=== PATIENT | female | born 1965 | race Caucasian/White ===

== ENCOUNTER → 2018-05-11 | Outpatient (CLI) | payer BC ==
--- NOTE | 2018-05-12 10:34 | MM ---
Reason for exam: additional evaluation requested from prior study. Last mammogram was performed 2 years and 6 months ago. History: Patient had first child at age 33. Family history of breast cancer in mother at age 71. Taking hormonal contraceptives for 1 year. Physical Findings: Nurse did not find any significant physical abnormalities on exam. MG 3D Diag Mammo W/Cad FARHAT Bilateral CC and MLO view(s) were taken. Prior study comparison: November 11, 2015, bilateral MG 3d screening mammo w/cad. October 12, 2010, bilateral digital screening mammo w/CAD. There are scattered fibroglandular densities. No significant new findings when compared with previous films. These results were verbally communicated with the patient and result sheet given to the patient on 05/11/18. ASSESSMENT: Negative, BI-RAD 1 RECOMMENDATION: Routine screening mammogram of both breasts in 1 year.
== END ==
LOC: RADMAMWWP 13:36
PROVIDERS: ATTEND Family Medicine
DX: N64.4 Mastodynia (principal)
CPT/HCPCS: 77062; 77066

== ENCOUNTER → 2019-04-06 | Outpatient (CLI) | payer BC ==
--- NOTE | 2019-04-06 13:13 | US ---
EXAMINATION TYPE: US venous doppler duplex LE RT DATE OF EXAM: 04/06/2019 12:55 PM COMPARISON: NONE CLINICAL HISTORY: R22.41 R Lower leg. Right lower leg and foot pain with sciatica. SIDE PERFORMED: Right TECHNIQUE: The lower extremity deep venous system is examined utilizing real time linear array sonog priscila with graded compression, doppler sonography and color-flow sonography. VESSELS IMAGED: Common Femoral Vein Deep Femoral Vein Greater Saphenous Vein * Femoral Vein Popliteal Vein Small Saphenous Vein * Proximal Calf Veins (* superficial vessels) There is normal flow, compressibility, vascular waveforms. Right Leg: Negative for DVT Tech findings called to Melina at Dr Siu's Office at exam's end. IMPRESSION: No evident deep venous arthrosis at or above the right knee.
== END | disposition home or self-care (01) ==
LOC: RADUSWWP 12:29
PROVIDERS: ATTEND Family Medicine
DX: M79.604 Pain in right leg (principal); R60.0 Localized edema; M54.31 Sciatica, right side

== ENCOUNTER → 2021-09-02 | Outpatient (CLI) | payer BC ==
--- NOTE | 2021-09-02 07:55 | CT ---
EXAMINATION TYPE: CT brain wo con DATE OF EXAM: 09/02/2021 HISTORY: Lt sided tension GAFFNEY CT DLP: 945.5 mGycm. Automated Exposure Control for Dose Reduction was Utilized. TECHNIQUE: CT scan of the head is performed without contrast. COMPARISON: None. FINDINGS: There is no acute intracranial hemorrhage or midline shift identified. Ventricle and sulc al size within normal limits for patient's age. Pittman-white matter differentiation maintained. Slight ly low-lying cerebellar tonsils into foramen magnum sagittal image 20 through 24 for reference. No de finitive greater than 5 mm inferior displacement. The globes are intact and the visualized sinuses ar e clear. IMPRESSION: No acute intracranial hemorrhage or midline shift. Low-lying cerebellar tonsils, patient may benefit with MRI follow-up.
== END | disposition home or self-care (01) ==
LOC: RADCTMAIN 06:50
PROVIDERS: ATTEND Family Medicine
DX: G44.209 Tension-type headache, unspecified, not intractable (principal)
CPT/HCPCS: 70450

== ENCOUNTER → 2021-09-30 | Outpatient (CLI) | payer BC ==
--- NOTE | 2021-09-30 10:08 | MR ---
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 Headaches TECHNIQUE: Multiplanar, multisequence images of the brain and brainstem were acquired before and aft er administration of 9 mL IV Gadavist. Diffusion weighted imaging is performed. FINDINGS: No evidence for acute infarction, hemorrhage, mass, mass effect, midline shift, herniation, effacemen t of basal cisterns, or extra-axial fluid collection. The ventricles and sulci are age-appropriate. The left vertebral artery is dominant. Major intracranial flow voids are intact. T2/FLAIR weighted sequences show no white matter signal abnormality. Midline structures demonstrate normal morphology. There is 4.5 mm of cerebellar tonsillar ectopia on the right and 5.5 mm on the left. These measurements are indeterminate between benign tonsillar ectop ia and Andrew 1 malformation. Otherwise, the craniocervical junction is normal. Post contrast images demonstrate no evidence of pathologic enhancement. Dural venous sinuses are pat ent. Scattered trace mucosal thickening ethmoid air cells. Minimal fluid within the inferior left mastoid air cells. Globes are intact. Either a prominent lobule of tissue relating to the left parotid gland versus a left parotid mass jose luis suring 1.8 x 1.1 cm (postcontrast sagittal image 13. There appears to be an enlarged lymph node in th e left upper neck measuring 1.6 cm short axis, postcontrast sagittal image 29. IMPRESSION: 1. No intracranial abnormality or enhancing lesion is seen. No T2-weighted white matter signal change s. 2. 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 These measurements are indeterminate between benign cerebellar tonsillar ectopia and Chiari I malformation. The former is s omewhat favored as there is no overcrowding at the foramen magnum or darinel tonsillar beaking. Further clinical correlation recommended. 3. Trace chronic ethmoid sinus disease. Minimal trapped fluid inferior left mastoid air cells, probab ly incidental/transient. Correlate for any mastoid pain to exclude mastoiditis. 4. Either a prominent lobule of parotid gland tissue versus a left parotid gland mass measuring 1.8 x 1.1 cm. Given an enlarged 1.6 cm short axis lymph node in the left upper neck, recommend further con trast-enhanced CT soft tissue neck evaluation.
== END | disposition home or self-care (01) ==
LOC: RADMRIMAIN 06:57
PROVIDERS: ATTEND Nurse Practitioner Family
DX: Q04.8 Other specified congenital malformations of brain (principal); J32.2 Chronic ethmoidal sinusitis; R59.9 Enlarged lymph nodes, unspecified
CPT/HCPCS: 70553; A9585

== ENCOUNTER 2021-12-01 13:15 | Day surgery (SDC) | payer BC ==
[2021-12-01] MEDS ORDERED: ALPRAZolam 0.5 MG TAB PO STA (13:43)
[2021-12-01 15:18] VITALS: BP 145/74; PULSE 97; RESP 18
--- NOTE | 2021-12-01 15:21 | US ---
ULTRASOUND GUIDED FNA LEFT NECK BIOPSY: CLINICAL HISTORY: Left parotid or neck mass FINDINGS: Preliminary imaging demonstrated no evidence of solid or cystic mass. IMPRESSION: 1. No definite mass seen by ultrasound. Recommend CT soft tissue neck with contrast for further evalu ation. MRI finding was only partially seen within the [id number]. Therefore this CT is recommended for further evaluation as clinically warranted.
== END 2021-12-01 14:45 | disposition home or self-care (01) ==
LOC: RADPROMAIN 13:15
PROVIDERS: ATTEND Otolaryngology
DX: K11.8 Other diseases of salivary glands (principal); R90.89 Other abnormal findings on diagnostic imaging of central nervous system
CPT/HCPCS: 76536

== ENCOUNTER → 2022-01-19 | Outpatient (CLI) | payer BC ==
--- NOTE | 2022-01-19 14:19 | US ---
EXAMINATION TYPE: US thyroid st tissue head/neck DATE OF EXAM: 01/19/2022 COMPARISON: CT neck December 22, 2021 CLINICAL HISTORY: E04.1 left Thyroid nodule. thyroid nodule visualized on recent CT GLAND SIZE: Right Lobe: 4.8 x 1.4 x 1.5 cm Overall Parenchyma: heterogenous Left Lobe: 3.9 x 1.2 x 1.3 cm Overall Parenchyma: heterogeneous Isthmus Thickness: 0.2 cm NODULES RIGHT: # of nodules measured on right: 1 1. 1.0 X 0.7 x 0.9 cm, lower , solid or almost completely solid, slightly hypoechoic nodule, which is wider than tall, with smooth margins, without echogenic foci. TR4 Prior size: no prior LEFT: # of nodules measured on left: 2 1. 0.6 X 0.5 x 0.5 cm, mid, solid or almost completely solid, hypoechoic nodule, which is wider vivian n tall, with smooth margins, with echogenic foci. TR5 Prior size: no prior 2. 0.9 X 0.5 x 0.8 cm, lower , mixed cystic and solid, hypoechoic nodule, which is wider than tall , with smooth margins, without echogenic foci. Prior size: no prior ISTHMUS: # of nodules measured in the isthmus: 0 Bilateral neck scanned, no evidence of lymphadenopathy. Slightly heterogeneous somewhat small size thyroid identified with scattered small nodules. IMPRESSION: As above. Ultrasound follow-up in 1 year time is advised to reassess. 2017 ACR TI-RADS LEVEL: TI-RADS 5 - Highly Suspicious: Follow if > 0.5 cm, FNA if > 1.0 cm *Highest TI-RADS level nodule reported
[2022-01-19 23:13] LABS: T4, Free (Free Thyroxine) 1.24 ng/dL (0.800-1.800)
== END | disposition home or self-care (01) ==
LOC: RADUSWWP 13:38
PROVIDERS: ATTEND Otolaryngology
DX: E04.2 Nontoxic multinodular goiter (principal)
CPT/HCPCS: 76536; 84439; 84443

== ENCOUNTER 2022-03-10 09:44 | Emergency (ER) | payer BC ==
[2022-03-10 09:59] VITALS: TEMP 97.7
--- NOTE | 2022-03-10 11:08 | ED ---
Back Pain HPI - General Chief Complaint: Back Pain/Injury Stated Complaint: back & arm pain Source: patient Limitations: no limitations - History of Present Illness Initial Comments: 57-year-old female presents emergency Department with reported left shoulder pain. States that her pain started after she played golf last week and. Pain is worse with movement. She has been taking Motrin at home and using heat pack which has not alleviated her symptoms. She denies any associated shortness of breath. No anterior chest pain. No fevers, chills or cough. No previous history of cardiac disease. She called her primary care doctor to get an appointment. When they her that she was having the pain with a history of hypertension they recommended that she come in to the emergency department for evaluation. - Related Data Home Medications Medication Instructions Recorded Confirmed Lisinopril-Hctz 10-12.5 mg 1 tab PO DAILY 03/10/22 03/10/22 [Zestoretic 10-12.5] Previous Rx's Medication Instructions Recorded methocarbamoL [Robaxin-750] 750 mg PO QID PRN #28 tab 03/10/22 Allergies Allergy/AdvReac Type Severity Reaction Status Date / Time sulfamethoxazole Allergy Rash/Hives Verified 03/10/22 11:42 [From Bactrim] trimethoprim [From Bactrim] Allergy Rash/Hives Verified 03/10/22 11:42 Review of Systems ROS Statement: Those systems with pertinent positive or pertinent negative responses have been documented in the HPI. ROS Other: All systems not noted in ROS Statement are negative. Past Medical History Past Medical History: Hypertension Additional Past Medical History / Comment(s): parotid mass History of Any Multi-Drug Resistant Organisms: None Reported Past Surgical History: Section, Hysterectomy Additional Past Surgical History / Comment(s): SKIN LESIONS,VARICOSE VEINS, Past Anesthesia/Blood Transfusion Reactions: No Reported Reaction Smoking Status: Never smoker Past Alcohol Use History: None Reported Past Drug Use History: None Reported - Past Family History Mother Family Medical History: Cancer Father Family Medical History: Cancer General Exam Limitations: no limitations Course Vital Signs 03/10/22 03/10/22 09:57 13:00 Temperature 97.7 F Pulse Rate 82 80 Respiratory 20 18 Rate Blood Pressure 163/108 142/88 O2 Sat by Pulse 100 98 Oximetry Medical Decision Making - Medical Decision Making Upon arrival patient was placed into room 4. Thorough history and physical exam was performed. 12-lead EKG was obtained. Laboratory studies were conducted and the patient went for her shoulder and chest x-ray. Patient was given a dose of Toradol. Upon review of the results are discussed patient. She'll be discharged home and is instructed to follow up for stress test and Holter monitoring. Will be placed on Robaxin. She should additionally follow up with the orthopedic clinic for reevaluation of her pain. Patient agreed and understood. She was discharged home. Will return for any new or worsening symptoms. - Lab Data Result diagrams: 03/10/22 11:20 03/10/22 11:20 Lab Results 03/10/22 03/10/22 03/10/22 Range/Units 11:20 11:20 11:20 WBC 5.0 (3.8-10.6) k/uL RBC 4.16 (3.80-5.40) m/uL Hgb 13.2 (11.4-16.0) gm/dL Hct 39.3 (34.0-46.0) % MCV 94.5 (80.0-100.0) fL MCH 31.9 (25.0-35.0) pg MCHC 33.7 (31.0-37.0) g/dL RDW 12.4 (11.5-15.5) % Plt Count 222 (150-450) k/uL MPV 7.7 Neutrophils % 63 % Lymphocytes % 26 % Monocytes % 6 % Eosinophils % 2 % Basophils % 2 % Neutrophils # 3.2 (1.3-7.7) k/uL Lymphocytes # 1.3 (1.0-4.8) k/uL Monocytes # 0.3 (0-1.0) k/uL Eosinophils # 0.1 (0-0.7) k/uL Basophils # 0.1 (0-0.2) k/uL PT 10.6 (9.0-12.0) sec INR 1.0 (<1.2) APTT 22.9 (22.0-30.0) sec Sodium 140 (137-145) mmol/L Potassium 3.6 (3.5-5.1) mmol/L Chloride 104 (98-107) mmol/L Carbon Dioxide 28 (22-30) mmol/L Anion Gap 8 mmol/L BUN 21 H (7-17) mg/dL Creatinine 1.08 H (0.52-1.04) mg/dL Est GFR (CKD-EPI)AfAm 66 (>60 ml/min/1.73 sqM) Est GFR (CKD-EPI)NonAf 57 (>60 ml/min/1.73 sqM) Glucose 95 (74-99) mg/dL Calcium 9.1 (8.4-10.2) mg/dL Magnesium 2.1 (1.6-2.3) mg/dL Total Bilirubin 0.7 (0.2-1.3) mg/dL AST 26 (14-36) U/L ALT 19 (4-34) U/L Alkaline Phosphatase 49 (38-126) U/L Troponin I (0.000-0.034) ng/mL Total Protein 7.6 (6.3-8.2) g/dL Albumin 4.6 (3.5-5.0) g/dL Lipase 214 (23-300) U/L 03/10/22 Range/Units 11:20 WBC (3.8-10.6) k/uL RBC (3.80-5.40) m/uL Hgb (11.4-16.0) gm/dL Hct (34.0-46.0) % MCV (80.0-100.0) fL MCH (25.0-35.0) pg MCHC (31.0-37.0) g/dL RDW (11.5-15.5) % Plt Count (150-450) k/uL MPV Neutrophils % % Lymphocytes % % Monocytes % % Eosinophils % % Basophils % % Neutrophils # (1.3-7.7) k/uL Lymphocytes # (1.0-4.8) k/uL Monocytes # (0-1.0) k/uL Eosinophils # (0-0.7) k/uL Basophils # (0-0.2) k/uL PT (9.0-12.0) sec INR (<1.2) APTT (22.0-30.0) sec Sodium (137-145) mmol/L Potassium (3.5-5.1) mmol/L Chloride (98-107) mmol/L Carbon Dioxide (22-30) mmol/L Anion Gap mmol/L BUN (7-17) mg/dL Creatinine (0.52-1.04) mg/dL Est GFR (CKD-EPI)AfAm (>60 ml/min/1.73 sqM) Est GFR (CKD-EPI)NonAf (>60 ml/min/1.73 sqM) Glucose (74-99) mg/dL Calcium (8.4-10.2) mg/dL Magnesium (1.6-2.3) mg/dL Total Bilirubin (0.2-1.3) mg/dL AST (14-36) U/L ALT (4-34) U/L Alkaline Phosphatase (38-126) U/L Troponin I 0.020 (0.000-0.034) ng/mL Total Protein (6.3-8.2) g/dL Albumin (3.5-5.0) g/dL Lipase (23-300) U/L - EKG Data EKG Comments: EKG demonstrates sinus rhythm with a rate of 73. LA interval 144. QRS 95. QTC 413. No acute ST segment elevations or depressions Disposition Clinical Impression: Shoulder pain Disposition: HOME SELF-CARE Condition: Stable Instructions (If sedation given, give patient instructions): Shoulder Pain (ED) Additional Instructions: Please take 600 mg of Motrin every 6-8 hours. Use the muscle relaxer as directed. Follow up with Dr. Maddox for Echo and stress test. Follow up with orthopedic office for further evaluation of your pain. Return for any new or worsening symptoms Prescriptions: methocarbamoL [Robaxin-750] 750 mg PO QID PRN #28 tab PRN Reason: Muscle Pain Is patient prescribed a controlled substance at d/c from ED?: No Referrals: Lake Siu III, MD [Primary Care Provider] - 1-2 days Raquel Lui DO [Doctor of Osteopathic Medicine] - 1-2 days Alfonso Maddox MD [STAFF PHYSICIAN] - 1-2 days Time of Disposition: 13:30
[2022-03-10 11:36] LABS: Basophils # (A) 0.1 k/uL (0-0.2); Basophils % (A) 2 %; Eosinophils # (A) 0.1 k/uL (0-0.7); Eosinophils % (A) 2 %; HCT 39.3 % (34.0-46.0); HGB 13.2 gm/dL (11.4-16.0); Lymphocytes # (A) 1.3 k/uL (1.0-4.8); Lymphocytes % (A) 26 %; MCH 31.9 pg (25.0-35.0); MCHC 33.7 g/dL (31.0-37.0); MCV 94.5 fL (80.0-100.0); Mean Platelet Volume 7.7; Monocytes # (A) 0.3 k/uL (0-1.0); Monocytes % (A) 6 %; Neutrophils # (A) 3.2 k/uL (1.3-7.7); Neutrophils % (A) 63 %; Platelet Count 222 k/uL (150-450); RBC 4.16 m/uL (3.80-5.40); RDW 12.4 % (11.5-15.5)
[2022-03-10 11:49] LABS: Albumin 4.6 g/dL (3.5-5.0); Calcium 9.1 mg/dL (8.4-10.2); Magnesium 2.1 mg/dL (1.6-2.3); Potassium 3.6 mmol/L (3.5-5.1); Total Bilirubin 0.7 mg/dL (0.2-1.3); Total Protein 7.6 g/dL (6.3-8.2)
--- NOTE | 2022-03-10 11:50 | XR ---
EXAMINATION TYPE: XR shoulder complete LT DATE OF EXAM: 03/10/2022 COMPARISON: NONE HISTORY: Pain TECHNIQUE: Three views are submitted. FINDINGS: The osseous structures are intact. There is no acute fracture or dislocation. The AC joint is maint ained. IMPRESSION: 1. No acute process.
[2022-03-10 11:51] LABS: Partial Thromboplastin Time 22.9 sec (22.0-30.0); Prothrombin Time 10.6 sec (9.0-12.0)
--- NOTE | 2022-03-10 11:54 | XR ---
EXAMINATION TYPE: XR chest 2V DATE OF EXAM: 03/10/2022 COMPARISON: NONE TECHNIQUE: PA and lateral views submitted. HISTORY: Chest pain FINDINGS: The lungs are clear and there is no pneumothorax, pleural effusion, or focal pneumonia. Heart size normal. No overt failure. Mild hyperinflation correlate for asthma or COPD. IMPRESSION: 1. No acute process.
[2022-03-10] MEDS ORDERED: KETOROLAC 15 MG/ML 1 ML VIAL IVP STA (13:25)
[2022-03-10 13:49] VITALS: BP 142/88; PULSE 80; RESP 18
== END 2022-03-10 13:35 | disposition home or self-care (01) ==
LOC: EC 09:44
DX: M25.512 Pain in left shoulder (principal); I10 Essential (primary) hypertension; Z79.899 Other long term (current) drug therapy; X58.XXXA Exposure to other specified factors, initial encounter
CPT/HCPCS: 36415; 93005; 80053; 83690; 83735; 84484; 85025; 85610; 85730; 73030; 71046; 99284; 96374; J1885

== ENCOUNTER → 2023-03-10 | Outpatient (CLI) | payer BC ==
--- NOTE | 2023-03-11 20:27 | MM ---
Reason for Exam: Screening (asymptomatic). Last mammogram was performed 4 year(s) and 10 month(s) ago. Patient History: Menarche at age 13. First Full-Term at age 33. Late child-bearing (after 30). Hysterectomy at age 45. Postmenopausal. Patient has history of breast feeding. Patient used Hormonal Contraceptives for 1 year. Mother had breast cancer, age 71. Risk Values: Martha 5 year model risk: 2.7%. NCI Lifetime model risk: 14.9%. Prior Study Comparison: 10/12/2010 Bilateral Screening Mammogram, [facility]. 11/11/2015 Bilateral Screening Mammogram, [facility]. 05/11/2018 Bilateral Diagnostic Mammogram, [facility]. Tissue Density: There are scattered fibroglandular densities. Findings: Analyzed By CAD. There is no suspicious group of microcalcifications or new suspicious mass in either breast. Overall Assessment: Negative, BI-RAD 1 Management: Screening Mammogram of both breasts in 1 year. . Patient should continue monthly self-breast exams. A clinical breast exam by your physician is recommended on an annual basis. This exam should not preclude additional follow-up of suspicious palpable abnormalities. Note on Martha scores and lifetime risk: 1. A Martha score greater than 3% is considered moderate risk. If this is the case, consider specialist referral to assess eligibility for a risk reducing agent. 2. If overall lifetime risk for the development of breast cancer is 20% or higher, the patient may qualify for future screening with alternating mammogram and breast MRI. Electronically signed and approved by: Cinda Vivas M.D. Radiologist
== END | disposition home or self-care (01) ==
LOC: RADMAMWWP 16:15
PROVIDERS: ATTEND Family Medicine
DX: Z12.31 Encounter for screening mammogram for malignant neoplasm of breast (principal); Z78.0 Asymptomatic menopausal state; Z80.3 Family history of malignant neoplasm of breast
CPT/HCPCS: 77067

== ENCOUNTER → 2023-03-11 | Outpatient (CLI) | payer BC ==
[2023-03-11 11:23] LABS: Basophils # (A) 0.07 X 10*3/uL (0.00-0.10); Basophils % (A) 1.2 %; Eosinophils # (A) 0.14 X 10*3/uL (0.04-0.35); Eosinophils % (A) 2.5 %; HCT 37.1 % (37.2-46.3); HGB 12.5 d/dL (12.0-15.0); Lymphocytes # (A) 2.16 X 10*3/uL (0.90-5.00); Lymphocytes % (A) 38.1 %; MCH 31.6 pg (27.0-32.0); MCHC 33.7 d/dL (32.0-37.0); MCV 93.9 FL (80.0-97.0); Mean Platelet Volume 9.5 FL (9.5-12.2); Monocytes # (A) 0.39 X 10*3/uL (0.20-1.00); Monocytes % (A) 6.9 %; NRBC Per 100 WBC 0 X 10*3/uL (0.00-0.01); Neutrophils % (A) 51.1 %; Platelet Count 216 X 10*3/uL (140-440); RBC 3.95 X 10*6/uL (4.10-5.20); RDW 12.8 % (11.5-14.5); WBC 5.67 X 10*3/uL (4.50-10.00)
[2023-03-11 11:56] LABS: ALT 20 U/L (8-44); AST 21 U/L (13-35); Albumin 4.4 d/dL (3.8-4.9); Albumin/Globulin Ratio 1.69 Ratio (1.60-3.17); Alkaline Phosphatase 49 U/L (41-126); BUN/Creat Ratio 19.36 Ratio (12.00-20.00); Blood Urea Nitrogen 21.3 mg/dL (9.0-27.0); Calcium 9.7 mg/dL (8.7-10.3); Chloride 105 mmol/L (96-109); Chol/HDL Ratio 3.07 Ratio; Globulin 2.6 d/dL (1.6-3.3); Glucose 88 mg/dL (70-110); LDL Cholesterol,Calculated 125.9 mg/dL (0.0-131.0); Potassium 3.7 mmol/L (3.5-5.5); Sodium 143 mmol/L (135-145); Total Bilirubin 0.6 mg/dL (0.3-1.2); VLDL Calculation 17.04 mg/dL (5.00-40.00)
== END | disposition home or self-care (01) ==
LOC: LABWHC1 07:30
PROVIDERS: ATTEND Family Medicine
DX: Z00.01 Encounter for general adult medical examination with abnormal findings (principal); Z12.31 Encounter for screening mammogram for malignant neoplasm of breast; Z13.29 Encounter for screening for other suspected endocrine disorder; I10 Essential (primary) hypertension; E78.5 Hyperlipidemia, unspecified
CPT/HCPCS: 36415; 80053; 80061; 82306; 83036; 84443; 85025